=== PATIENT | male | born 1965 | race Caucasian/White ===

== ENCOUNTER 2016-06-01 06:33 | Inpatient (IN) | payer MEDICARE, MEDICAID ==
--- NOTE | 2016-05-28 23:35 | HP ---
HISTORY AND PHYSICAL: DATE OF ADMISSION/SURGERY: 06/01/16 DATE OF OFFICE VISIT: 05/26/16 ATTENDING SURGEON: Tracee Fish MD PROCEDURE: Left total knee arthroplasty. CHIEF COMPLAINT: Preop for a left total knee arthroplasty. HISTORY OF PRESENT ILLNESS: Toni is a 50-year-old male with chronic left knee pain due to osteoart hritis. The patient states that his knee pain is a 4/10 currently. He states that he has been havi ng a hard time getting through his shift- loads. He also states that his medications are becoming l ess and less effective. The patient has failed conservative therapy and is now electively pursuing a total knee arthroplasty. PAST MEDICAL HISTORY: 1. Presley cyst of the left knee. 2. Knee pain, osteoarthritis of left knee. 3. Arthritis of the ulna/wrist joint bilateral. 4. Right shoulder AC joint sprain. 5. Cubital tunnel syndrome bilaterally. 6. Carpal tunnel syndrome bilaterally. 7. Sciatica, right hip. 8. Costochondritis, right side of chest wall. 9. Trigger finger, bilateral pinkies, left ring finger. 10. Sleep apnea. 11. L3-S1 facet arthroplasty. 12. C3-C6 marked spurring. PAST SURGICAL HISTORY: 1. 05/11/16, left knee arthroscopy, Dr. Fish. 2. 09/18/11, right total knee replacement, Dr. Araiza. 3. 06/01/11, right knee arthroscopy, Dr. Araiza. 4. 08/31/09, left median and ulnar nerve decompression. 5. 02/26/09, right median and ulnar nerve decompression and right fifth finger trigger release, Dr. Connelly. 6. 12/19/07, right labrum tear repair, Dr. Araiza. 7. 08/01/07, right knee arthroscopy, Dr. Araiza. 8. 07/21/05, right cubital tunnel release, Dr. Connelly. 9. 03/17/04, right knee arthroscopy, Dr. Araiza. 10. 11/05/03, C6-C7 anterior surgical diskectomy, Dr. Laws. 11. 07/09/03, left carpal tunnel release, Dr. Laws. 12. 04/30/03, right carpal tunnel release, Dr. Laws. 13. 01/21/03, nasal septum deviation, swollen turbinates, and epiglottis surgery, Dr. Lucero. 14. 12/25/02, right shoulder decompression, Dr. Araiza. 15. 10/16/02, right knee arthroscopy, Dr. Araiza. 16. 09/09/96, right knee arthroscopy, Dr. Oliva. 17. 11/13/95, right knee arthroscopy. 18. 03/21/91, left ear tube. CURRENT MEDICATIONS: 1. Levothyroxine 0.075 mg take 1 tablet per day. 2. Lisinopril 10 mg 1 tablet per day. 3. Baclofen 10 mg 1 tablet twice daily. 4. Lipitor 10 mg once a day. 5. Ambien CR 5 mg once a day. 6. Gabapentin 100 mg 3 tablets twice daily, 4 tablets at bedtime. 7. Aleve 220 mg 3 tablets 3 times a day. 8. Tramadol 50 mg 1 tablet every 6 hours. 9. Aspirin 325 mg 1 tablet twice a day. 10. Ex-Lax 25 mg 1 tablet as needed. ALLERGIES: MOTRIN, VIOXX, and CELEBREX. FAMILY MEDICAL HISTORY: The patient has no family medical history to speak of. SOCIAL HISTORY: The patient has never smoked. Denies any illicit drug use and denies any alcoholic drinking. REVIEW OF SYSTEMS: General: Negative for fevers, chills, and night sweats. No known anesthesia pr oblems. HEENT: Negative for headaches, lightheadedness, or syncopal episodes. Integument: Negati ve for abrasions, lesions, or open wounds. Cardiothoracic: Negative for chest pain, palpitations, o r edema. Pulmonary: Negative for shortness of breath with exertion or chronic cough. GI: Negative for nausea, vomiting, or diarrhea. The patient admits to constipation, currently taking Ex-Lax. G U: Negative for nocturia, urinary frequency, or urinary urgency. MSK: Positive for left knee pain. See HPI. Neuro: Negative for paresthesias or numbness. Negative for diabetes. Admits to thyroi d complications. Hematologic: Negative for easy bruising or anemia. PHYSICAL EXAMINATION GENERAL: The patient is a well-developed, well-nourished 50-year-old male who appears in no acute d istress. HEENT: NCAT, PERRLA, EOMI. NECK: Supple with no palpable lymphadenopathy. PULMONARY: Lungs are clear to auscultation in all lung diaz with no audible wheezing, rales, or r honchi. CARDIO: Regular rate and rhythm with normal S1 and S2. No appreciable S3 or S4. No murmurs, rubs, or gallops. No edema. ABDOMEN: Normoactive bowel sounds in all 4 quadrants. Soft and nontender to palpation in all 4 anamaria drants. NEUROLOGIC: Alert and oriented x3. Cranial nerves II through XII are grossly intact. Sensation is intact to light touch in the left and right lower extremity. MUSCULOSKELETAL: Left lower extremity: The patient's skin is intact. The patient reveals tenderne ss to palpation along the medial and lateral joint line. No varus or valgus instability. Active mo tion from 10 to 120 degrees of flexion. The patient has 5/5 ankle dorsiflexion and plantar flexion strength; 2+ palpable dorsalis pedis pulse and posterior tibialis pulse. DIAGNOSTIC STUDIES/LAB DATA: Multiple views of the left knee were reviewed today and seemed approp riate for surgery by Dr. Fish. The patient had osteophyte formation, subchondral sclerosis, and jarrod int space narrowing of the left knee. ASSESSMENT: Preop for a left total knee arthroplasty. PLAN/RECOMMENDATIONS: The patient is scheduled to undergo a left total knee arthroplasty on 7. He will return to the office in 10 to 14 days postop for followup and suture removal. A prescri ption for Percocet, Colace, and Coumadin was e-prescribed to the patient's pharmacy for postoperativ e pain management. The benefits and possible risks of surgery were discussed with the patient and t he consent was obtained. ARNAUD SARABIA [id number]/[facility] #: [id number]
[~2016-06-01 06:33] MED LIST: Buffered Lidocaine 1% SYR 3ML* 3 ML/SYR SYRINGE INTRADERM ONE
[2016-06-01] MEDS ORDERED: ceFAZolin 2 GM PREMIX (*) 2 GM/50 ML BAG IVPB ONE (07:52)
[2016-06-01] MEDS ORDERED: ceFAZolin 1 GM in Dextrose (*) 1 GM/50 ML BAG IVPB ONE (07:53)
[2016-06-01] MEDS ORDERED: Buffered Lidocaine 1% SYR 3ML* 3 ML/SYR SYRINGE ONE (07:53)
[2016-06-01] MEDS ORDERED: fentaNYL* 50 MCG/ML 2 ML VIAL (100 MCG VIAL) ONE ×6 (09:58→13:46)
[2016-06-01] MEDS ORDERED: Midazolam* 1 MG/ML 2 ML VIAL (2 MG) ONE (09:58)
[2016-06-01] MEDS ORDERED: Ondansetron INJ* 2 MG/ML VIAL ONE (10:33)
[2016-06-01] MEDS ORDERED: Dexamethasone IV* 4 MG/ML 1 ML (4 MG) ONE (10:33)
[2016-06-01] MEDS ORDERED: Propofol* 10 MG/ML 20 ML BTL IV PUSH ONE (10:33)
[2016-06-01] MEDS ORDERED: Lidocaine 2% MPF* 2 ML VIAL ONE (10:33)
[2016-06-01] MEDS ORDERED: Bupivacaine 0.5% SDV PF* 30 ML VIAL ONE (10:50)
[2016-06-01] MEDS ORDERED: Sevoflurane* 1 BTL ONE (12:41)
[2016-06-01] MEDS ORDERED: Acetaminophen TAB* 325 MG PO PRN (13:03)
[2016-06-01] MEDS ORDERED: oxyCODONE/Acetamin 5/325 MG* TAB PO PRN (13:03)
[2016-06-01] MEDS ORDERED: HYDROmorphone INJ* 1 MG/ML CARPUJECT SYRINGE ONE ×2 (13:03→14:30)
[2016-06-01] MEDS: fentaNYL* 50 MCG/ML 2 ML VIAL (100 MCG VIAL) IV PRN ×5 (13:07→13:48)
[2016-06-01] MEDS: HYDROmorphone INJ* 1 MG/ML CARPUJECT SYRINGE IV PRN ×4 (13:11→14:47)
[2016-06-01] MEDS ORDERED: oxyCODONE/Acetamin 5/325 MG* TAB ONE (13:33)
[2016-06-01] MEDS: oxyCODONE/Acetamin 5/325 MG* TAB PO PRN ×3 (13:35→23:32)
--- NOTE | 2016-06-01 13:48 | RAD ---
INDICATION: Total knee replacement COMPARISON: March 22, 2016 TECHNIQUE: AP and lateral views were obtained. FINDINGS: There is left knee arthroplasty. Both femoral and tibial components appear well seated. There is a surgical drain in place. There are soft tissue changes compatible with recent surgery. IMPRESSION: LEFT KNEE ARTHROPLASTY.
[2016-06-01] MEDS ORDERED: Bisacodyl SUPP* 10 MG SUPP PR PRN (14:24)
[2016-06-01] MEDS ORDERED: diPHENhydraMINE IV* 50 MG/ML 1 ml VIAL (BENADRYL) IV PRN (14:24)
[2016-06-01] MEDS ORDERED: Ondansetron TAB* 4 MG PO PRN (14:24)
[2016-06-01] MEDS ORDERED: Polyethylene Glycol 3350* 17 GM PACKET PO PRN (14:24)
[2016-06-01] MEDS ORDERED: Ondansetron INJ* 2 MG/ML VIAL IV PRN (14:24)
[2016-06-01] MEDS ORDERED: Zolpidem TAB* 5 MG PO PRN (14:28)
[2016-06-01] MEDS ORDERED: Enoxaparin(*) 40 MG/0.4 ML SYR SUBCUT SCH (15:00)
[2016-06-01] MEDS: oxyCODONE TAB* 5 MG TAB PO PRN (16:30)
[2016-06-01] MEDS ORDERED: Warfarin TAB(*) 10 MG PO ONE (17:00)
[2016-06-01] MEDS: ceFAZolin 1 GM in Dextrose (*) 1 GM/50 ML BAG IVPB SCH (17:51)
[2016-06-01] MEDS: Atorvastatin* 10 MG TAB PO SCH (17:52)
[2016-06-01] MEDS: Lisinopril TAB* 10 MG PO SCH (17:52)
[2016-06-01] MEDS: Magnesium Hydroxide LIQ* 30 ML UDC PO SCH (20:54)
[2016-06-01] MEDS: Docusate CAP* 100 MG PO SCH (20:56)
[2016-06-01] MEDS: Gabapentin CAP(*) 300 MG PO SCH (20:56)
[2016-06-01] MEDS: Morphine INJ* 10 MG/ML 1 ML CARPUJECT IV PRN (21:43)
[2016-06-02] MEDS: Morphine INJ* 10 MG/ML 1 ML CARPUJECT IV PRN ×2 (01:36→20:37)
[2016-06-02] MEDS: ceFAZolin 1 GM in Dextrose (*) 1 GM/50 ML BAG IVPB SCH ×2 (01:38→08:01)
[2016-06-02] MEDS: oxyCODONE/Acetamin 5/325 MG* TAB PO PRN ×4 (03:19→20:17)
[2016-06-02] MEDS: Levothyroxine TAB* 75 MCG TAB PO SCH (06:00)
[2016-06-02 06:56] LABS: Hematocrit 32 % (42-52); Hemoglobin 10.7 g/dl (14.0-18.0)
[2016-06-02 07:08] LABS: Calcium 8.7 mg/dL (8.6-10.3); EGFR African American 100.9 (>60); EGFR Non-African American 78.5 (>60); Potassium 4.1 mmol/L (3.5-5.0)
--- NOTE | 2016-06-02 07:34 | PN ---
Progress Note - Progress Note SOAP: Subjective: Pt is doing well, reports pain well controlled. Objective: LLE - drain removed, tip intact, 200 cc ss drainage. distally nvi with +df/pf, full sens lt, 2+ dp pulse. Vital Signs: Temp Pulse Resp BP Pulse Ox 97.7 F 91 18 110/63 98 06/02/16 03:18 06/02/16 03:18 06/02/16 05:19 06/02/16 03:18 06/02/16 03:18 Laboratory Results - last 24 hr 06/01/16 06/02/16 06/02/16 08:05 06:21 06:21 Hgb 10.7 L Hct 32 L INR (Anticoag Therapy) 1.39 H Sodium Potassium Chloride Carbon Dioxide Anion Gap BUN Creatinine Est GFR ( Amer) Est GFR (Non-Af Amer) BUN/Creatinine Ratio Glucose Calcium Blood Type A Negative Antibody Screen Negative 06/02/16 06:21 Hgb Hct INR (Anticoag Therapy) Sodium 135 Potassium 4.1 Chloride 103 Carbon Dioxide 28 Anion Gap 4 BUN 13 Creatinine 1.00 Est GFR ( Amer) 100.9 Est GFR (Non-Af Amer) 78.5 BUN/Creatinine Ratio 13.0 Glucose 118 H Calcium 8.7 Blood Type Antibody Screen Assessment: 50 yo M pod 2 s/p LTKA Plan: pt/ot - wbat lle ramírez out this AM 8 mg coumadin tonight, cont lovenox plan d/c tomorrow with vns
[2016-06-02] MEDS: Docusate CAP* 100 MG PO SCH ×2 (08:01→20:18)
[2016-06-02] MEDS: Magnesium Hydroxide LIQ* 30 ML UDC PO SCH ×2 (08:01→20:16)
[2016-06-02] MEDS: Gabapentin CAP(*) 300 MG PO SCH ×2 (08:01→20:17)
[2016-06-02] MEDS: oxyCODONE TAB* 5 MG TAB PO PRN ×4 (08:02→23:57)
--- NOTE | 2016-06-02 08:36 | OP ---
DATE OF OPERATION: 06/01/16 - ROOM #334 DATE OF : 61 SURGEON: Tracee Fish MD OB GYN: ARNAUD Marion ANESTHESIOLOGIST: Dr. Ray. ANESTHESIA: General. PRE-OP DIAGNOSIS: Severe end-stage degenerative osteoarthritis of the left knee joint. POST-OP DIAGNOSIS: Severe end-stage degenerative osteoarthritis of the left knee joint. OPERATIVE PROCEDURE: Left total knee arthroplasty. TOURNIQUET TIME: 56 minutes. COMPLICATIONS: None. SPECIMENS: Bone and cartilage from the left knee joint sent to pathology. ESTIMATED BLOOD LOSS: 300 mL. HARDWARE USED: This was cemented [employer] total knee hardware with two packages of bone and cement of simplex bone cement. For the femur, a size 6 left posterior stabilized Oxinium femoral component. For the tibia, a size 6 left tibial base plate. For the patella, a 35 mm 3-peg all-poly patella. For the insert an 1l-mm posterior stabilized articular insert. BRIEF HISTORY/INDICATIONS: Mr. Hurd is a 50-year-old gentleman with years of increasingly severe left knee pain. He failed conservative treatment with antiinflammatories, pain medication, weight loss attempt, physical therapy, brace wear, intraarticular injections and arthroscopy. At the time of arthroscopy and on radiographs he was found to have severe degenerative osteoarthritis in a tricompartment fashion. He elected to undergo left total knee arthroplasty due to continued pain and decreased quality of life. Informed consent was obtained from the patient. He understood the risks of the procedure included, but were not limited to bleeding, infection, damage to nearby structures, continued pain, need for further surgery, intraoperative fracture, nerve palsy, hardware failure or loosening, stroke, heart attack, blood clot, and . He wished to proceed. INTRAOPERATIVE FINDINGS: Intraoperatively, the patient was noted to have a valgus type arthritic picture which is tricompartmental with full thickness degeneration of cartilage in the medial, lateral and patellofemoral compartment. He had lateral femoral condylar hypoplasia. DESCRIPTION OF PROCEDURE: Mr. Hurd was identified in the preanesthesia unit. His left lower extremity was marked as the correct operative side. Informed consent was signed and placed in the chart. The patient was taken to the operating room and placed under general anesthesia. A Hall catheter was placed. Tourniquet was placed on the left thigh. The left lower extremity was prepped and draped in the usual sterile fashion. Preop time-out was made to correctly identify the patient side and site. Appropriate preoperative antibiotics were given within 1 hour of incision. Tourniquet was inflated until the tourniquet time for this procedure was 56 minutes. A 14 cm midline incision was made with the 10 blade and carried down to the extensor mechanism. A new 10 blade was then used to make a standard medial parapatellar arthrotomy. Patella was subluxed laterally. Electrocautery was used to subperiosteally elevate soft tissue off the superomedial tibia to the mid sagittal plane. The knee was flexed up. Anterior horn of the lateral meniscus and ACL was sharply released. A drill was used to enter the distal femur. Lateral femoral condylar hypoplasia was noted and accounted for. Oscillating saw was used to make the distal femoral cut. Next, the external rotational guide was placed on the distal femur. Distal femur was sized to a size 6. A size 6 multi-cutting jig was pinned into position on the distal femur. The oscillating saw was used to make the appropriate chamfer cuts. Next, the PCL was completely released. Tibia was subluxed anteriorly. Extramedullary tibial cutting guide was pinned into position on the proximal tibia. The oscillating saw was used to make the appropriate tibial cut perpendicular to the mechanical axis of the tibia. The bone was carefully removed. The knee was brought out into full extension. The spacer block had good fit with balancing medially and laterally. Flexion and extension gaps were well balanced. The knee was flexed up. Lamina selling manager was placed both medially and laterally. Any remaining meniscus was carefully excised with electrocautery. Curved osteotome and curette was used to remove any osteophyte from the posterior femoral condyles. A size 6 left femoral trial was impacted onto the distal femur and had good fit. Reamer and box cut osteotome were used to prepare the bone for the posterior stabilized implant. A size 6 tibial tray trial and 9 mm insert were placed. The knee was taken through range of motion and noted to have full extension to 120 degrees of flexion. There was good patello-emoral tracking. The patella was everted. 9 mm of patellar bone and cartilage were carefully removed with an oscillating saw. The patella was size to a size 35. Three pegs were drilled through the size 35 guide. A trial 35 patella was placed and the knee was taken through a range of motion. There was satisfactory patellofemoral tracking. All trials were carefully removed. The tibia was subluxed anteriorly and sized to a size 6. Proximal tibia was prepared using a keel punch. All bony cut surfaces were copiously irrigated with sterile saline and dried. Final implants were cemented into place starting with the tibia, followed by the femur , and lastly the patella. An 11-mm trial insert was placed, and the knee was brought out to full extension. Tourniquet was turned down at 56 minutes. Once the cement was fully cured, the trial insert was removed. The capsule was checked for any bleeding or excess cement which was carefully removed. An 11 mm posterior stabilized insert was chosen as the final implant. This was locked into position on the tibial tray. Stability of the insert was checked and rechecked, and noted to be stable. Final range of motion was full extension to 125 degrees of flexion with good patellofemoral tracking. The knee was copiously irrigated with sterile saline. The extensor mechanism was closed using interrupted #1 Vicryls over a medium Hemovac drain. The rest of the incision was closed in a layered fashion using 0 and 2-0 Vicryls. Skin was closed using running 3-0 nylon suture. Xeroform, 4x4s, and Webril were used to cover the incision. Chriss wrap and cold pack were placed over this. The patient's anesthesia was reversed without difficulty. He was taken to the PACU in stable condition. Intended DVT prophylaxis will be Coumadin with a Lovenox bridge. Intended weightbearing will be weightbearing as tolerated. [id number]/[facility] #: [id number] [facility]
[2016-06-02] MEDS: Vitamin THERAPEUTIC TAB PO SCH (08:37)
[2016-06-02] MEDS ORDERED: Enoxaparin(*) 40 MG/0.4 ML SYR SUBCUT SCH (15:00)
[2016-06-02] MEDS ORDERED: Warfarin TAB(*) 4 MG PO ONE (17:00)
[2016-06-02] MEDS: Lisinopril TAB* 10 MG PO SCH (17:44)
[2016-06-02] MEDS: Atorvastatin* 10 MG TAB PO SCH (17:44)
[2016-06-03] MEDS: Morphine INJ* 10 MG/ML 1 ML CARPUJECT IV PRN (02:34)
[2016-06-03] MEDS: oxyCODONE/Acetamin 5/325 MG* TAB PO PRN ×2 (06:10→10:42)
[2016-06-03] MEDS: Levothyroxine TAB* 75 MCG TAB PO SCH (06:11)
[2016-06-03 06:56] LABS: Hematocrit 31 % (42-52); Hemoglobin 10.5 g/dl (14.0-18.0)
[2016-06-03 08:07] VITALS: BP 131/72
[2016-06-03] MEDS: Gabapentin CAP(*) 300 MG PO SCH (09:01)
[2016-06-03] MEDS: Vitamin THERAPEUTIC TAB PO SCH (09:01)
[2016-06-03] MEDS: Docusate CAP* 100 MG PO SCH (09:01)
[2016-06-03] MEDS: Magnesium Hydroxide LIQ* 30 ML UDC PO SCH (09:02)
--- NOTE | 2016-06-03 09:40 | PN ---
Progress Note - Progress Note SOAP: Subjective: POD #2 Left TKA, doing well. Pain controlled. Denies CP/SOB, calf pain or swelling. Appetite good, +BM Objective: Vital Signs: Temp Pulse Resp BP Pulse Ox 97.9 F 96 16 131/72 98 06/03/16 07:31 06/03/16 07:31 06/03/16 09:01 06/03/16 07:31 06/03/16 08:47 Gen: A & Ox3, NAD at rest sitting in chair LLE: Incision C/D/I. Mild edema, no erythema. +f/e at ankles, MTPs. N/V intact Laboratory Results - last 24 hr 06/03/06/03/16 06:47 06:47 Hgb 10.5 L Hct 31 L INR (Anticoag Therapy) 1.85 H Assessment: POD #2 left TKA, doing well Plan: D/C home today INR 1.8, continue Coumadin 2mg tonight and tomorrow F/U with Dr. Fish 10-14 days
--- NOTE | 2016-06-04 23:12 | DS ---
DISCHARGE SUMMARY: DATE OF ADMISSION: 06/01/16 DATE OF DISCHARGE: 06/03/16 ADMITTING DIAGNOSIS: End-stage osteoarthritis of the left knee. DISCHARGE DIAGNOSIS: Severe end-stage osteoarthritis of the left knee status post left total knee arthroplasty. SECONDARY DIAGNOSES: 1. Sleep apnea. 2. Hypothyroidism. 3. Hypertension. HISTORY OF PRESENT ILLNESS: Mr. Hurd is a 50-year-old gentleman who has had chronic left knee pain due to osteoarthritis. He underwent a left knee arthroscopy to help alleviate his pain. However, he still persisted with debilitating pain in his knee. Medications are becoming less effective and he has a hard time with day to day activities. He elected to proceed with a left total knee arthroplasty. HOSPITAL COURSE: On 06/01/16, the patient was admitted to [facility] , underwent a successful left total knee arthroplasty by Dr. Fish. He recovered briefly in the Postanesthesia Care Unit and was transferred to the Short-Stay Surgical Unit in stable condition. On postop day 1, the patient states that his pain was well controlled with oral pain medications. He was able to ambulate a short distance with the use of rolling walker. He had an H and H of 10.7 and 32. Hemovac was removed without difficulty. Hall was also removed. INR was 1.39 with 8 mg of Coumadin. Postop day 2, the patient continued to have good pain control with oral pain medications. H and H was stable at 10.5 and 31. INR 1.8 with 8 mg of Coumadin. He was found stable for discharge on postop day 2. Throughout his hospital course, he remained normotensive and afebrile. DISCHARGE MEDICATIONS: He will go home with a prescription for Percocet 5/325 one to two tabs p.o. q. 4 to 6 hours p.r.n. pain. Coumadin 2 mg p.o. q.h.s. or otherwise directed by visiting nurse. He is understanding to take 2 mg on postop day 3 and postop day 4. He will have a redraw of his INR on postop day 5. Colace 100 mg p.o. b.i.d. p.r.n. constipation. He will resume his home medications: 1. Ambien 5 mg p.o. at bedtime p.r.n. 2. Lisinopril 10 mg p.o. q.p.m. 3. Levothyroxine 75 mcg p.o. daily. 4. Gabapentin 300 mg p.o. b.i.d. 5. Ex-lax 25 mg 1 to 2 tabs p.o. b.i.d. 6. Baclofen 10 mg p.o. t.i.d. 7. Atorvastatin 10 mg p.o. q.p.m. DISCHARGE INSTRUCTIONS: The patient is to continue weightbearing as tolerated in the left leg with a rolling walker. He will have home visiting nurse service and home PT. He is understanding that on postop day 4, he may wash the wound with soap and water. He may apply a dry dressing as needed. He is understanding not to submerge the wound in the bathtub, hot tub or swimming pool. He is also understanding to call the office with any problems or concerns or go directly to the emergency room with any chest pain, shortness of breath, fever greater than 101.5, calf pain or swelling. The patient will follow up with me in the office 10 to [address] Fish. All of his questions were answered to his full satisfaction. He is understanding to call with any problems or concerns. ARNAUD BRAVO [id number]/[facility] #: [id number] [facility]
== END 2016-06-03 11:05 | disposition home health service (06) | DRG 470 ==
LOC: AA 06:33 → SSU 15:13
PROVIDERS: ADMIT Orthopaedic Surgery Adult Reconstructive Orthopaedic Surgery; ATTEND Orthopaedic Surgery Adult Reconstructive Orthopaedic Surgery
PROC: 0SRD0J9 Replacement of Left Knee Joint with Synthetic Substitute, Cemented, Open Approach (ICD-10-PCS; principal; 2016-06-01 09:30)
DX: M17.12 Unilateral primary osteoarthritis, left knee (principal); E03.9 Hypothyroidism, unspecified; G89.29 Other chronic pain; M19.032 Primary osteoarthritis, left wrist; M19.031 Primary osteoarthritis, right wrist; Z96.651 Presence of right artificial knee joint; Z88.8 Allergy status to other drugs, medicaments and biological substances; Q72.892 Other reduction defects of left lower limb; G47.30 Sleep apnea, unspecified
CPT/HCPCS: 36415; 80048; 85014; 85018; 85610; 86850; 86900; 86901; 88305; 88311; 94760; A9270-GY; C1776; J0690; J1100; J1170; J1650; J2250; J2270; J2405; J2704; J3010

== ENCOUNTER → 2018-10-24 10:43 | Emergency (ER) | payer MEDICAID, MEDICARE ==
[~2018-10-24 10:43] MED LIST changes: +Aspirin 81 mg CHEW TAB* 81 MG TAB.CHEW PO ONE; -Buffered Lidocaine 1% SYR 3ML* 3 ML/SYR SYRINGE INTRADERM ONE; +Iodixanol* (CONTRAST) 320 MG/ML 100 ML SDV IV ONE; +Nitroglycerin TAB 0.4 MG* 0.4 MG TAB SL ONE
[2018-10-24 12:27] LABS: ABS Basophils 0.1 10^3/ul (0-0.2); ABS Eosinophils 0.2 10^3/ul (0-0.6); ABS Lymphocytes 0.9 10^3/ul (1.0-4.8); ABS Monocytes 0.5 10^3/ul (0-0.8); ABS Neutrophils 4.2 10^3/ul (1.5-7.7); Eosinophil % 2.7 %; Hematocrit 42 % (42-52); Hemoglobin 14.6 g/dL (14.0-18.0); Lymphocyte % 15.8 %; Mean Corpuscular HGB Conc 35 g/dL (31-36); Mean Corpuscular Hemoglobin 30 pg (27-31); Mean Corpuscular Volume 86 fL (80-94); Mean Platelet Volume 8.3 fL (7.4-10.4); Nucleated Red Blood Cells % 0.1; Platelet Count 227 10^3/uL (150-450); Red Blood Count 4.89 10^6 /uL (4.18-5.48); Red Cell Distribution Width 14 % (10-15); White Blood Count 5.9 10^3/uL (3.5-10.8)
[2018-10-24 12:48] LABS: Albumin 4.5 g/dL (3.2-5.2); Calcium 9.8 mg/dL (8.6-10.3); Potassium 4.2 mmol/L (3.5-5.0); Total Bilirubin 0.9 mg/dL (0.2-1.0)
[2018-10-24 12:55] LABS: Albumin/Globulin Ratio 1.6 (1-3); BUN/Creatinine Ratio 9.9 (8-20); Globulin 2.9 g/dL (2-4); Total Protein 7.4 g/dL (6.4-8.9)
--- NOTE | 2018-10-24 13:37 | ED ---
HPI Cardiac - HPI Summary HPI Summary: Patient is a 52 y/o M presenting to ED with complaints of chest pain, neck pain , right-sided CALDERON, left thigh pain. He states that last night, at around 1900, he experienced pain at his left thigh and momentary, sharp pain at the right side of his head. CALDERON lasted for a few minutes. He additionally felt diaphoretic and "flushed" momentarily. Patient later went to sleep. In the morning today, patient began to experience chest pain with radiation to his neck. Pain is described as a pressure. He additionally notes that he had a sharp "burning" pain between his shoulder blades this morning as well. He notes some pain at chest is still present, which he rates 2-3/10. Patient notes yawning and head movement aggravates neck pain. Deep breaths are noted to aggravate the pain. PMHx of hypothyroidism, HLD, HTN. PSHx of multiple arthritic-related surgery, carpal tunnel surgery, c6-c7 replacement. He denies cardiac stents or bypass surgeries. He had a cardiac stress test a few years ago, and a cardiac catheter around 2002. FMHx of blood clots in father. No recent long travel is reported. Pt denies any fever, chills, erythema of eyes, sore throat, SOB, cough, abdominal pain, N/V, dysuria, hematuria, edema, rash, or dizziness. On triage, pain is rated 4/10, nothing is noted to aggravate/alleviate Sx. Home medications and allergies are reviewed. - History of Current Complaint Chief Complaint: EDGeneral Stated Complaint: POSSIBLE BLOOD CLOT NECK PRESSURE Time Seen by Provider: 10/24/18 13:15 Hx Obtained From: Patient Onset/Duration: Still Present - chest pain Timing: Constant - CP since onset, Intermittent - CALDERON, Lasting Minutes - CALDERON, Lasting Hours - CP with radiation into neck since this morning, Lasting Days - thigh pain onset yesterday, 1900 Initial Severity: Mild Current Severity: Moderate Pain Intensity: 3 Pain Scale Used: 0-10 Numeric - 2-3/10 Chest Pain Radiates: Yes Chest Pain Radiates To:: Neck Character: Pressure/Squeezing Aggravating Factor(s): Movement, Deep Breaths, Other: - yawning aggravates neck pain Alleviating Factor(s): Nothing Associated Signs and Symptoms: Positive: Chest Pain, Headaches, Diaphoresis, Back Pain, Calf Pain/Swelling - left thigh pain, Other: - patient endorses neck pain, felt "flushed"; denies any erythema of eyes, sore throat, dysuria, hematuria, rash,. Negative: Dizziness, Shortness of Breath, Fever, Chills, Nausea, Cough, Productive Cough, Nonproductive Cough, Abdominal Pain, Vomiting, Edema - Additional Pertinent History Primary Care Physician: DANGELO - Allergy/Home Medications Allergies/Adverse Reactions: Allergies Allergy/AdvReac Type Severity Reaction Status Date / Time MS Latex [Latex] Allergy Mild Rash And Verified 10/24/18 13:18 Itching MS Celecoxib [From Celebrex] AdvReac Severe Pain Verified 10/24/18 13:18 MS Ibuprofen [From Motrin] AdvReac Severe Dizziness Verified 10/24/18 13:18 MS Rofecoxib [From Vioxx] AdvReac Severe Pain Verified 10/24/18 13:18 PMH/Surg Hx/FS Hx/Imm Hx Endocrine/Hematology History: Reports: Hx Thyroid Disease Denies: Hx Diabetes Cardiovascular History: Reports: Hx Hypercholesterolemia, Hx Hypertension Denies: Hx Congestive Heart Failure, Hx Pacemaker/ICD Respiratory History: Reports: Hx Sleep Apnea Denies: Hx Asthma History: Denies: Hx Dialysis, Hx Renal Disease Musculoskeletal History: Reports: Hx Arthritis - osteo joints, costochondritis of chest wall, Hx Bursitis - right hip, Hx Tendonitis - right shoulder, Other Musculoskeletal History - LUMBAR BONE SPURS, c3-c6 marked spurring Sensory History: Reports: Hx Contacts or Glasses Denies: Hx Hearing Aid Opthamlomology History: Reports: Hx Contacts or Glasses Neurological History: Reports: Other Neuro Impairments/Disorders - BILAT CTS Psychiatric History: Reports: Hx Depression - HX OF Denies: Hx Panic Disorder - Surgical History Surgery Procedure, Year, and Place: 1990 [facility]-LEFT EAR. 1995 & RIGHT KNEE SCOPING FLA. 2002, 2007, 2011 RIGHT KNEE SCOPING [facility]. 2002 [facility]- right shoulder decompression. 2002 [facility]- BILAT CTR. RIGHT KNEE REPLACEMENT 2012 [facility]. C6-C7 DISKECTOMY 2009. LEFT KNEE SCOPE 05/11/15. 2003 [facility]- C6/7 ACDF. 2005 [facility]- right cubital tunnel release. 02/26 [facility]- BILAT median & ulnar nerve release. 2003 cardiac cath. 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 Negative: Fever, Chills Negative: Erythema Negative: Sore Throat Positive: Chest Pain Negative: Shortness Of Breath, Cough Negative: Abdominal Pain, Vomiting, Nausea Negative: dysuria, hematuria Positive: Myalgia - POSITIVE - NECK PAIN, BACK PAIN, LEFT THIGH PAIN Negative: Rash Neurological: Other - NEGATIVE - DIZZINESS Positive: Headache All Other Systems Reviewed And Are Negative: Yes Physical Exam - Summary Physical Exam Summary: Constitutional: Well-developed, Obese, Alert. Patient has hearing aids. (-) Distressed Skin: Warm, Dry HENT: Normocephalic; Atraumatic Eyes: Conjunctiva normal Neck: Musculoskeletal ROM normal neck. (-) JVD, (-) Stridor, (-) Tracheal deviation Cardio: Rhythm regular, rate normal, Heart sounds normal; Intact distal pulses; The pedal pulses are 2+ and symmetric. Radial pulses are 2+ and symmetric. (-) Murmur (-) Reproducible chest pain Pulmonary/Chest wall: Effort normal. (-) Respiratory distress, (-) Wheezes, (-) Rales Abd: Soft, (-) tenderness, (-) Distension, (-) Guarding, (-) Rebound Musculoskeletal: (-) Edema Lymph: (-) Cervical adenopathy Neuro: Alert, Oriented x3 Psych: Mood and affect Normal Triage Information Reviewed: Yes Vital Signs On Initial Exam: Initial Vitals Temp Pulse Resp BP Pulse Ox 98.1 F 70 18 131/81 97 10/24/18 10:44 10/24/18 10:44 10/24/18 10:44 10/24/18 10:44 10/24/18 10:44 Vital Signs Reviewed: Yes Diagnostics - Vital Signs Vital Signs Temp Pulse Resp BP Pulse Ox 10/24/18 12:15 98.4 F 66 18 124/66 99 10/24/18 10:44 98.1 F 70 18 131/81 97 - Laboratory Lab Results: Lab Results 10/24/18 10/24/18 10/24/18 Range/Units 12:08 12:08 12:10 WBC 5.9 (3.5-10.8) 10^3/uL RBC 4.89 (4.18-5.48) 10^6 /uL Hgb 14.6 (14.0-18.0) g/dL Hct 42 (42-52) % MCV 86 (80-94) fL MCH 30 (27-31) pg MCHC 35 (31-36) g/dL RDW 14 (10-15) % Plt Count 227 (150-450) 10^3/uL MPV 8.3 (7.4-10.4) fL Neut % (Auto) 71.9 % Lymph % (Auto) 15.8 % Cooper % (Auto) 8.4 % Eos % (Auto) 2.7 % Baso % (Auto) 1.2 % Absolute Neuts (auto) 4.2 (1.5-7.7) 10^3/ul Absolute Lymphs (auto) 0.9 L (1.0-4.8) 10^3/ul Absolute Monos (auto) 0.5 (0-0.8) 10^3/ul Absolute Eos (auto) 0.2 (0-0.6) 10^3/ul Absolute Basos (auto) 0.1 (0-0.2) 10^3/ul Absolute Nucleated RBC 0.0 10^3/ul Nucleated RBC % 0.1 Sodium 140 (135-145) mmol/L Potassium 4.2 (3.5-5.0) mmol/L Chloride 104 (101-111) mmol/L Carbon Dioxide 29 (22-32) mmol/L Anion Gap 7 (2-11) mmol/L BUN 13 (6-24) mg/dL Creatinine 1.31 H (0.67-1.17) mg/dL Est GFR ( Amer) 69.0 (>60) Est GFR (Non-Af Amer) 57.0 (>60) BUN/Creatinine Ratio 9.9 (8-20) Glucose 94 (70-100) mg/dL Lactic Acid 0.6 (0.5-2.0) mmol/L Calcium 9.8 (8.6-10.3) mg/dL Total Bilirubin 0.90 (0.2-1.0) mg/dL AST 21 (13-39) U/L ALT 20 (7-52) U/L Alkaline Phosphatase 78 (34-104) U/L Troponin I 0.00 (<0.04) ng/mL Total Protein 7.4 (6.4-8.9) g/dL Albumin 4.5 (3.2-5.2) g/dL Globulin 2.9 (2-4) g/dL Albumin/Globulin Ratio 1.6 (1-3) Result Diagrams: 10/24/18 12:10 10/24/18 12:08 Lab Statement: Any lab studies that have been ordered have been reviewed, and results considered in the medical decision making process. - CT NECK CTA CT Interpretation Completed By: Radiologist Summary of CT Findings: IMPRESSION: 1. NO INTIMAL FLAP OR PSEUDOANEURYSM FORMATION TO SUGGEST CAROTID DISSECTION. 2. NO INTERNAL CAROTID ARTERY STENOSIS BY NASCET CRITERIA. 3. THE THYROID GLAND IS SMALL AND HETEROGENEOUS. THIS REPORT WAS REVIEWED BY DR. JOHNSON. CHEST/THORAX CTA CT Interpretation Completed By: Radiologist Summary of CT Findings: IMPRESSION: NO PULMONARY ARTERIAL FILLING DEFECT TO SUGGEST PULMONARY EMBOLISM. THIS REPORT WAS REVIEWED BY DR. JOHNSON. - EKG 1150 Cardiac Rate: NL - rate of 64 BPM EKG Rhythm: Sinus Rhythm Summary of EKG Findings: EKG showed sinus rhythm with rate of 64 BPM, no STEMI. Re-Evaluation - Re-Evaluation First Eval Re-Evaluation Time: 15:51 Comment: Results of labs and tests were discussed with the patient, the patient is agreeable with admission. Second Eval Re-Evaluation Time: 18:10 Change: Improved Comment: Reevaluation at 1810, the patient is currently chest pain-free at the time of discharge. Outpatient stress test has been arranged for the hospitalist service. They did recommend discharge. Disposition - Course Course Of Treatment: Patient is a 52 y/o M presenting to ED with complaints of chest pain, neck pain, right-sided CALDERON, left thigh pain. He states that last night, at around 1900, he experienced pain at his left thigh and momentary, sharp pain at the right side of his head. CALDERON lasted for a few minutes. He additionally felt diaphoretic and "flushed" momentarily. Patient later went to sleep. In the morning today, patient began to experience chest pain with radiation to his neck. Pain is described as a pressure. He additionally notes that he had a sharp "burning" pain between his shoulder blades this morning as well. He notes some pain at chest is still present, which he rates 2-3/10. Patient notes yawning and head movement aggravates neck pain. Deep breaths are noted to aggravate the pain. PMHx of hypothyroidism, HLD, HTN. PSHx of multiple arthritic-related surgery, carpal tunnel surgery, c6-c7 replacement. He denies cardiac stents or bypass surgeries. He had a cardiac stress test a few years ago , and a cardiac catheter around 2002. FMHx of blood clots in father. No recent long travel is reported. On physical exam, patient is noted to have no reproducible chest pain. Patient is obese. EKG showed sinus rhythm with rate of 64 BPM, no STEMI. Labs showed absolute lymphs 0.9, creatinine 1.31. First trop negative, second trop negative. CTA CHEST/THORAX IMPRESSION: NO PULMONARY ARTERIAL FILLING DEFECT TO SUGGEST PULMONARY EMBOLISM. CTA NECK IMPRESSION: 1. NO INTIMAL FLAP OR PSEUDOANEURYSM FORMATION TO SUGGEST CAROTID DISSECTION. 2. NO INTERNAL CAROTID ARTERY STENOSIS BY NASCET CRITERIA. 3. THE THYROID GLAND IS SMALL AND HETEROGENEOUS. During ED course, patient received ASA 324 mg PO and 0.4 mg SL. Patients case was discussed with Dr. Iraheta at 1542, Dr. Iraheta will evaluate the patient. Reevaluation at 181, the patient is currently chest pain-free at the time of discharge. Outpatient stress test has been arranged for the hospitalist service. They did recommend discharge. - Diagnoses Provider Diagnoses: Chest pain - Physician Notifications Discussed Care Of Patient With: Aide Iraheta Time Discussed With Above Provider: 15:42 Instructed by Provider To: Other - Patients case was discussed with Dr. Iraheta at 1542, Dr. Iraheta will evaluate the patient. 181 - After evaluation by hospitalist, it is recommended that the patient be discharged to home for out patient stress test. Patient will be discharged to home. Discharge - Sign-Out/Discharge Documenting (check all that apply): Patient Departure - discharge Patient Received Moderate/Deep Sedation with Procedure: No - Discharge Plan Condition: Stable Disposition: HOME Patient Education Materials: Chest Pain (ED) Referrals: Rene Wan MD [Primary Care Provider] - 2 [facility] [Outside] - 1 Day Additional Instructions: Return to the ER for any changing or worsening symptoms. We checked her heart enzymes twice which was normal today. Your CT scans reveal no blood clots. - Attestation Statements Document Initiated by Scribe: Yes Documenting Scribe: FRANCESCA REID Provider For Whom Scribe is Documenting (Include Credential): SAVANNAH JOHNSON MD Scribe Attestation: I, FRANCESCA RIED, scribed for SAVANNAH JOHNSON MD on 10/24/18 at 1809. Status of Scribe Document: Ready
[2018-10-24 17:45] VITALS: BP 136/71
--- NOTE | 2018-10-24 18:58 | CONS ---
CC: Dr. Wan * CONSULTATION REPORT: DATE OF CONSULT: 10/24/18 PRIMARY CARE PROVIDER: Dr. Wan. REQUESTING PHYSICIAN IN CONSULT: Dr. Addison. ATTENDING PHYSICIAN: Dr. Iraheta (dictated by Fernanda Markham NP). REASON FOR CONSULT: Admission. HISTORY OF PRESENT ILLNESS/HOSPITAL COURSE: I will refer you to Dr. Addison' history and physical for complete details, but in short, Mr. Hurd is a 52- year- old male with a past medical history significant for hypothyroid, hypertension, hyperlipidemia, sleep apnea, arthritis, depression; who presented to the emergency department today on 10/24/18 with complaints of right-sided chest pain. The patient was evaluated in room 15 in the emergency department by this chart writer. The patient recalls the event stating that last night around 1900, he was sitting and noted left inner thigh pain that lasted only a few seconds. He shortly thereafter experienced right-sided headache that lasted only a few seconds. He felt flushed and sweaty. These symptoms resolved and he went to bed. He reports he woke up the next morning with right-sided chest pain that felt very "pinpoint" and sharp. He said the pain slowly migrated to the center of his chest throughout the day, but never to the left. He reports he felt pressure in the right side of his neck later that day, but that has also resolved. He describes the pain as like when he had costochondritis. He reports he had diagnosed osteoarthritis in his chest wall. The patient denies aggravating factors. The patient reports alleviating factors include relaxing. The patient has no pain currently. The patient denies any associated symptoms with this pain including diaphoresis, palpitations, shortness of breath , dizziness, tinnitus, lightheadedness. The patient denies nausea and vomiting. The patient denies recent fevers or anorexia. The patient denies edema. The patient denies cough, hemoptysis, shortness of breath. The patient denies nausea, vomiting, diarrhea, abdominal pain. The patient denies gross hematuria. The patient denies dysuria. While in the emergency department, the patient has had a chest/thorax CTA. This imaging resulted stating no pulmonary artery filling deficit to suggest pulmonary embolism. He also had a neck CTA, which revealed no intimal flap or pseudoaneurysm formation to suggest carotid dissection, no internal carotid artery stenosis by NASCET criteria, thyroid gland is small and heterogeneous. The patient also had an echocardiogram, which revealed sinus rhythm with no ST changes. During this workup, the patient also had labs including a CBC which is unremarkable and a BMP which revealed elevated creatinine of 1.31. The patient had repeat troponins, all of which were 0.00. The patient's vital signs have also been stable. He has not been tachycardic. He has not been hypertensive. He is afebrile. He is oxygenating well on room air. His respirations are normal. PAST MEDICAL HISTORY: 1. Hypothyroid. 2. Hypertension. 3. Hyperlipidemia. 4. Sleep apnea. 5. Arthritis. 6. Depression. PAST SURGICAL HISTORY: 1. Multiple surgeries related to arthritis. 2. Carpal tunnel. 3. C6-C7. HOME MEDICATIONS: 1. Baclofen 10 mg p.o. t.i.d. p.r.n. 2. Lipitor 10 mg p.o. q.p.m. 3. Lisinopril 10 mg p.o. q.p.m. 4. Levothyroxine 75 mcg p.o. at 0800. 5. Ambien 5 mg p.o. at bedtime. 6. Naproxen 3 tabs p.o. t.i.d. p.r.n. ALLERGIES: LATEX, CELEBREX, IBUPROFEN, ROFECOXIB. FAMILY HISTORY: The patient reports dad due to a complication with a blood clot. Reports mom due to COPD. The patient reports mom had a history of diabetes. The patient reports dad had a history of skin cancer. SOCIAL HISTORY: The patient does not smoke. The patient does not drink. The patient does not do drugs. The patient works at [employer]. REVIEW OF SYSTEMS: A 14-point review of systems was performed and all pertinent positive and negative findings are in the HPI. All others were negative. PHYSICAL EXAM: General: Mr. Hurd is a 52-year-old male who is sitting in bed. Appears to be in no acute distress. Appears stated age. Vital Signs: Temp 98.4, HR 77, RR 18, O2 saturation 100% on room air, BP 149/ 92. HEENT: EOMs intact. PERRLA. Oral mucosa is moist without lesions. Posterior pharynx is clear. Neck: Supple. No lymphadenopathy. Cardiac: S1, S2 present. No murmurs, rubs, or gallops. Regular rate and rhythm. Respiratory: Lungs are clear to auscultation. No wheezes, rhonchi, or rales. Good aeration. Abdomen: Soft, nontender. Bowel sounds are normoactive. Extremities: No edema. No clubbing or cyanosis. Pedal pulses are 2+ bilaterally. Musculoskeletal: No pain or deformities. Skin: Skin is grossly intact. Neuro: Neuro exam is grossly intact. No focal deficits or weakness noted. LABORATORY DATA: WBC 5.9, hemoglobin 14.6, hematocrit 42, platelets 227,000. Sodium 140, potassium 4.2, chloride 104, carbon dioxide 29, BUN 13, creatinine 1.31. ASSESSMENT AND PLAN: Mr. Hurd is a 52-year-old male with a past medical history significant for hypothyroid, hypertension, hyperlipidemia, sleep apnea, arthritis, depression; who presented to the emergency department today with complaints of right-sided chest pain. We discussed admitting the patient for a stress test tomorrow, but the patient would prefer to be discharged and do stress test as an outpatient as he feels improved and believes that his pain was related to costochondritis as it feels very similar to a previous episode. 1. Right-sided chest pain. While in the emergency department, the patient has had repeat troponins, which were negative. The patient had an EKG, which is within normal limits. The patient has had a CTA, which did not show evidence of a pulmonary embolism. The patient has been on tele, which has been unremarkable. The patient reports the right-sided chest pain has now resolved. He reports it was similar to that of costochondritis. Given the patient's comorbidities, we did discuss the benefit of a stress test and the patient would like to do this as an outpatient. This has been ordered by my attending, Dr. Iraheta. The patient will be contacted by [facility] in 24 to 48 hours regarding time for a stress test. The patient was educated on signs and symptoms of new or worsening condition and when to return to the emergency department. The patient stated understanding. 2. Hypothyroid. The patient should continue his levothyroxine as same. I would recommend the patient have a TSH drawn with his primary care. 3. Hyperlipidemia. The patient should continue his statin as same. I would recommend the patient have repeat lipids. 4. Sleep apnea. We discussed the importance of continuing his BiPAP use nightly and the patient stated understanding. 5. Arthritis. The patient reports his pain is controlled. The patient should follow up with his primary care as needed. 6. Depression. The patient reports he has a history of this, but is no longer struggling with depression. 7. Elevated Creatinine: Patient's creatinine is mildly elevated. This could be his baseline or secondary to dehydration. I would recommend a repeat BMP in one week with PCP. 7. Disposition: I have discussed the patient's risk factors and plan with the patient. The patient has made the decision that he would like to be discharged home and have an outpatient stress test. I discussed this with Dr. Addison and my attending Dr. Iraheta, who agree with my plan. The patient will be discharged by Dr. Addison. TIME SPENT: Approximately 45 minutes were spent on this consultation, greater than half the time was spent with the patient obtaining my history, performing physical exam, and reviewing my plan of care. This case has been reviewed with my attending, Dr. Iraheta, who is in agreement with my plan of care. Reviewed by FERNANDA MARKHAM NP 10/26/18 @ 1822 [id number]/CPS #: [id number]
== END | disposition home or self-care (01) ==
LOC: ED 10:43
DX: R07.9 Chest pain, unspecified (principal); R94.31 Abnormal electrocardiogram [ECG] [EKG]; I10 Essential (primary) hypertension; E78.5 Hyperlipidemia, unspecified; E03.9 Hypothyroidism, unspecified; M19.90 Unspecified osteoarthritis, unspecified site; F32.9 Major depressive disorder, single episode, unspecified; Z91.040 Latex allergy status; Z88.6 Allergy status to analgesic agent; Z88.3 Allergy status to other anti-infective agents; Z98.61 Coronary angioplasty status
CPT/HCPCS: 36415; 70498; 71275; 80053; 83605; 84484; 85025; 93005; 99283; A9270-GY; Q9967

== ENCOUNTER 2019-08-03 10:24 | Emergency (ER) | payer OTHER, MEDICAID ==
--- NOTE | 2019-08-03 11:04 | ED ---
Lower Extremity - HPI Summary HPI Summary: 53-year-old male with a significant past surgical history of bilateral total knee arthroplasty who sees orthopedist Dr. Fish presents to the emergency department today complaining of 10 out of 10 right knee pain and swelling after injuring it yesterday when coming down a ladder. Patient states she believes he twisted his knee while coming down a ladder and he has now expressing pain which is made worse with extension of the knee and bearing weight however he is able to ambulate with a walker. Patient otherwise is well and denies recent travel, cough, fever, chest pain, abdominal pain, shortness of breath, nausea, vomiting and diarrhea. Patient is neurovascularly intact. Patient is taking gabapentin for his pain prior to arrival with relief of symptoms. - History of Current Complaint Chief Complaint: EDExtremityLower Stated Complaint: R KNEE PAIN FROM FALL PER PT Time Seen by Provider: 08/03/19 10:45 Hx Obtained From: Patient Onset of Pain: Immediate Onset/Duration: Days Severity Initially: Severe Severity Currently: Severe Pain Intensity: 7 Pain Scale Used: 0-10 Numeric Timing: Constant Location: Is Discrete @ - Right knee Character Of Pain: Aching Associated Signs And Symptoms: Positive: Knee Pain Aggravating Factor(s): Standing, Ambulation, Movement, Weight Bearing, Stairs Alleviating Factor(s): Rest Able to Bear Weight: Yes - Allergies/Home Medications Allergies/Adverse Reactions: Allergies Allergy/AdvReac Type Severity Reaction Status Date / Time latex Allergy Mild Rash And Verified 08/03/19 10:38 Itching celecoxib AdvReac Severe Pain Verified 08/03/19 10:38 ibuprofen AdvReac Severe Dizziness Verified 08/03/19 10:38 rofecoxib AdvReac Severe Pain Verified 08/03/19 10:38 Home Medications: Home Medications Atorvastatin* [Lipitor 10 MG*] 10 mg PO QPM 12/31/12 [History Confirmed 10/30/18 ] Levothyroxine TAB* [Synthroid 75 MCG TAB*] 75 mcg PO 0800 12/31/12 [History Confirmed 10/30/18] Naproxen Sodium 3 tab PO TID PRN 12/31/12 [History Confirmed 10/30/18] Zolpidem TAB* [Ambien*] 5 mg PO BEDTIME PRN 12/31/12 [History Confirmed 10/30/18 ] Baclofen TAB* [Lioresal TAB*] 10 mg PO TID PRN 09/01/14 [History Confirmed 10/30] Lisinopril TAB* [Prinivil TAB 10 MG*] 10 mg PO QPM 09/01/14 [History Confirmed 10/30/18] PMH/Surg Hx/FS Hx/Imm Hx Endocrine/Hematology History: Reports: Hx Thyroid Disease Denies: Hx Diabetes Cardiovascular History: Reports: Hx Angina, Hx Hypercholesterolemia, Hx Hypertension Denies: Hx Congestive Heart Failure, Hx Pacemaker/ICD Respiratory History: Reports: Hx Sleep Apnea Denies: Hx Asthma History: Denies: Hx Dialysis, Hx Renal Disease Musculoskeletal History: Reports: Hx Arthritis - osteo joints, costochondritis of chest wall, Hx Bursitis - right hip, Hx Tendonitis - right shoulder, Other Musculoskeletal History - LUMBAR BONE SPURS, c3-c6 marked spurring Sensory History: Reports: Hx Contacts or Glasses Denies: Hx Hearing Aid Opthamlomology History: Reports: Hx Contacts or Glasses Neurological History: Reports: Other Neuro Impairments/Disorders - BILAT CTS Psychiatric History: Reports: Hx Depression - HX OF Denies: Hx Panic Disorder - Cancer History Cancer Type, Location and Year: SKIN CARCINOMA REMOVED - Surgical History Surgery Procedure, Year, and Place: 1990 [facility]-LEFT EAR. 1995 & RIGHT KNEE SCOPING FLA. 2002, 2007, 2011 RIGHT KNEE SCOPING [facility]. 2002 [facility]- right shoulder decompression. 2002 [facility]- BILAT CTR. RIGHT KNEE REPLACEMENT 2011 [facility]. C6-C7 DISKECTOMY 2009. LEFT KNEE SCOPE 05/11/15. 2003 [facility]- C6/7 ACDF. 2005 [facility]- right cubital tunnel release. 02/26 [facility]- BILAT median & ulnar nerve release. 2003 cardiac cath. 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 Denies: Traveled Outside the [place] in Last 30 Days - Family History Known Family History: Positive: Blood Disorder - FMHx of blood clots - Social History Alcohol Use: None Substance Use Type: Reports: None Smoking Status (MU): Never Smoked Tobacco Review of Systems Constitutional: Negative Eyes: Negative ENT: Negative Cardiovascular: Negative Respiratory: Negative Gastrointestinal: Negative Genitourinary: Negative Positive: Arthralgia, Decreased ROM Skin: Negative Neurological/Mental Status: Negative Psychological: Normal All Other Systems Reviewed And Are Negative: Yes Physical Exam - Summary Physical Exam Summary: Patient is in no acute distress. There is no obvious deformity of the right knee. There is mild edema noted superior to the patella. Patient has no pain with valgus and varus stress. Patient has full range of motion of the right knee. Negative anterior and posterior drawer. Triage Information Reviewed: Yes Vital Signs On Initial Exam: Initial Vitals Temp Pulse Resp BP Pulse Ox 99.1 F 65 14 128/84 98 08/03/19 10:34 08/03/19 10:34 08/03/19 10:34 08/03/19 10:34 08/03/19 10:34 Vital Signs Reviewed: Yes Appearance: Positive: Well-Appearing, No Pain Distress, Well-Nourished Skin: Positive: Warm, Skin Color Reflects Adequate Perfusion Eyes: Positive: EOMI, GRICELDA ENT: Positive: Hearing grossly normal Respiratory/Lung Sounds: Positive: Clear to Auscultation, Breath Sounds Present Cardiovascular: Positive: RRR, S1, S2 Abdomen Description: Positive: Nontender, Soft Bowel Sounds: Positive: Present Musculoskeletal: Positive: Strength/ROM Intact Neurological: Positive: Sensory/Motor Intact, Alert, Oriented to Person Place, Time, Normal Gait, Facial Symmetry, Speech Normal Psychiatric: Positive: Normal, Affect/Mood Appropriate AVPU Assessment: Alert Procedures - Sedation Patient Received Moderate/Deep Sedation with Procedure: No Diagnostics - Vital Signs Vital Signs Temp Pulse Resp BP Pulse Ox 08/03/19 10:34 99.1 F 65 14 128/84 98 - Laboratory Lab Statement: Any lab studies that have been ordered have been reviewed, and results considered in the medical decision making process. Lower Extremity Course/Dx - Course Course Of Treatment: Patient evaluated in the emergency department today for right knee pain. Vitals noted and stable. Physical exam was benign and showed no evidence of significant knee instability or ligamental damage. X-ray showed no evidence of fracture or periprosthetic displacement. Patient discharged with outpatient follow-up to orthopedics. - Diagnoses Differential Diagnosis/HQI/PQRI: Positive: Arthritis, Fracture (Closed), Sprain , Strain Provider Diagnoses: Knee pain, right Discharge ED - Sign-Out/Discharge Documenting (check all that apply): Patient Departure - Discharge Plan Condition: Stable Disposition: HOME Patient Education Materials: Knee Pain (ED) Referrals: Miguelito Elizabeth MD [Medical Doctor] - 3 Days Rene Wan MD [Primary Care Provider] - Additional Instructions: You were seen in the emergency department today for knee pain. Please follow up with Orthopedics in 5 days for further evaluation and management of your injury. Until you are seen by Orthopedics please return to activity is tolerated. For further alleviation of your symptoms please practice R.I.C.E therapy. Rest, Ice, compress, elevate the affected area. * Ibuprofen 600mg three times daily with meals for pain. * If numbness, tingling, decreased sensation, increased pain, temperature changes or pallor noted in toes, come back to ER immediately. * Protect the area. For your comfort level, do not bear weight, pull or push until you can injury is somewhat healed. This may involve the need for immobilization or crutches for a period of time. * Rest the involved area, but not too long. You may need to be off your injury for some time to allow for healing, however excessive immobilization of joints can lead to stiffness and delay healing time. Early mobilization is encouraged if it is pain-free. * Ice: Not directly on the skin. Cover with a towel. Apply ice no more than 30 minutes at a time * Compression: You may use and keep an sofy wrap bandage over the injury to decrease swelling. Again, this should be limited and be taken off periodically to encourage early range of motion and mobilization. * Elevate: Try to elevate the injured area above the heart whenever possible, Especially during sleep. - Billing Disposition and Condition Condition: STABLE Disposition: Home - Attestation Statements Provider Attestation: I was available for consultation for this patient. I did not evaluate the patient or participate in any medical decision making or disposition decisions unless I am specifically named in the chart as having consulted on the patient. If I have consulted on the patient, please see my own ED note on the patient encounter. Angeline Young MD
[2019-08-03 13:28] VITALS: BP 124/79
== END 2019-08-03 13:27 | disposition home or self-care (01) ==
LOC: ED 10:24
DX: M25.561 Pain in right knee (principal); E07.89 Other specified disorders of thyroid; E78.00 Pure hypercholesterolemia, unspecified; I10 Essential (primary) hypertension; Z79.890 Hormone replacement therapy; Z79.899 Other long term (current) drug therapy; Z96.653 Presence of artificial knee joint, bilateral; Z88.8 Allergy status to other drugs, medicaments and biological substances; Z88.6 Allergy status to analgesic agent; Z91.040 Latex allergy status
CPT/HCPCS: 99282

== ENCOUNTER 2020-08-11 07:53 | Inpatient (IN) ==
[~2020-08-11 07:53] MED LIST changes: -Aspirin 81 mg CHEW TAB* 81 MG TAB.CHEW PO ONE; +Buffered Lidocaine 1% SYRIN 1 ml INTRADERM ONE; +Dexamethasone IV 4 MG/ML VIAL 1 ml VIAL IV SLOW PU ONE; -Iodixanol* (CONTRAST) 320 MG/ML 100 ML SDV IV ONE; +Lactated Ringers 1000 ml BAG 1,000 ML IV SCH; -Nitroglycerin TAB 0.4 MG* 0.4 MG TAB SL ONE
[2020-08-11] MEDS ORDERED: Heparin 5000 UNITS/ML 1 mL VIAL ONE (08:06)
[2020-08-11] MEDS ORDERED: ceFAZolin 1 GM ADVAN 1 GM ADDV.VIAL IVPB ONE (08:07)
[2020-08-11] MEDS ORDERED: Dexamethasone IV 4 MG/ML VIAL 1 ml VIAL ONE (08:07)
[2020-08-11] MEDS ORDERED: ceFAZolin 2 GM PREMIX 2 GM/50 ML BAG ONE (08:07)
[2020-08-11] MEDS ORDERED: Bupivacaine 0.25% EPI 200,000 30 ML SDV ONE ×2 (09:14→10:26)
[2020-08-11] MEDS ORDERED: Midazolam 5 mg/5 ml VIAL 1 mg/ml 5 ml VIAL (5 mg) ONE (09:31)
[2020-08-11] MEDS ORDERED: fentaNYL 250 mcg/5 ml 50 MCG/ML 5 ml VIAL (250 MCG) ONE (09:31)
[2020-08-11] MEDS ORDERED: Propofol 10 MG/ML 20 ML BTL ONE (09:32)
[2020-08-11] MEDS ORDERED: Lidocaine 2% PF 5 ML VIAL ONE (09:32)
[2020-08-11] MEDS ORDERED: Rocuronium 50 mg VIAL 10 mg/ml 5 ml VIAL (50 mg) ONE ×2 (09:32→11:00)
[2020-08-11] MEDS ORDERED: Acetaminophen IV 1 GM/100ML 1,000 MG/100 ML VIAL IVPB ONE (09:39)
[2020-08-11] MEDS ORDERED: Naloxone 0.4 mg VIAL 0.4 mg/ml 1 ml VIAL IV PRN (09:39)
[2020-08-11] MEDS ORDERED: Morphine 4 MG/ML VIAL (1 ml) IV PRN (09:39)
[2020-08-11] MEDS ORDERED: Prochlorperazine 5 mg/ml 2 ml VIAL (10 mg) IV PRN (09:39)
[2020-08-11] MEDS ORDERED: EPHEDrine (Pressors) 50 MG/ML VIAL ONE (10:26)
[2020-08-11] MEDS ORDERED: Ondansetron 4 mg VIAL 2 MG/ML 2 ml VIAL ONE ×2 (11:21→12:59)
[2020-08-11] MEDS ORDERED: Sugammadex 500 MG/5 ML 5 ml VIAL IV PUSH ONE (11:55)
[2020-08-11] MEDS ORDERED: diPHENhydraMINE IV 50 MG/ML 1 ml VIAL (BENADRYL) SLOW PUSH PRN (12:09)
[2020-08-11] MEDS ORDERED: HYDROcodone/ACET. 7.5/325 LIQ 15 ML UDC PO PRN (12:09)
[2020-08-11] MEDS ORDERED: HYDROmorphone 1 MG/1 ML SYRINGE IV SLOW PU PRN (12:09)
[2020-08-11] MEDS ORDERED: fentaNYL 100 mcg/2 ml 50 MCG/ML VIAL ONE ×3 (12:36→13:32)
[2020-08-11] MEDS: fentaNYL 100 mcg/2 ml 50 MCG/ML VIAL IV PRN ×5 (12:36→13:33)
[2020-08-11] MEDS: Ondansetron 4 mg VIAL 2 MG/ML 2 ml VIAL IV PRN (13:02)
[2020-08-11] MEDS: Lactated Ringers 1000 ml BAG 1,000 ML IV SCH ×2 (13:57→21:11)
[2020-08-11] MEDS: Heparin 5000 UNITS/ML 1 mL VIAL SUBCUT SCH ×2 (16:08→21:12)
[2020-08-11] MEDS: HYDROmorphone 0.5 MG/0.5 ML SYRINGE IV SLOW PU PRN ×2 (16:09→21:20)
[2020-08-11] MEDS: Famotidine IV 10 MG/ML 2 ml VIAL (20 mg) IV SLOW PU SCH (21:13)
[2020-08-12] MEDS: HYDROmorphone 0.5 MG/0.5 ML SYRINGE IV SLOW PU PRN (03:04)
[2020-08-12] MEDS: Ondansetron 4 mg VIAL 2 MG/ML 2 ml VIAL IV PRN ×2 (03:09→09:08)
[2020-08-12] MEDS: Lactated Ringers 1000 ml BAG 1,000 ML IV SCH (03:43)
[2020-08-12] MEDS: Heparin 5000 UNITS/ML 1 mL VIAL SUBCUT SCH ×2 (05:45→14:09)
[2020-08-12] MEDS: Famotidine IV 10 MG/ML 2 ml VIAL (20 mg) IV SLOW PU SCH (08:32)
[2020-08-12] MEDS ORDERED: D5W 1/2 NS KCl 20 meq 1000 ml 1,000 ML IV SCH (13:00)
[2020-08-12 15:38] VITALS: BP 148/71
[2020-08-14] MEDS ORDERED: Scopolamine PATCH Remove NOTE PATCH OFF SCH (09:00)
== END 2020-08-12 18:00 | disposition home or self-care (01) | DRG 621 ==
LOC: AA 07:53 → SSU 13:41
PROVIDERS: ADMIT Surgery; ATTEND Surgery

== ENCOUNTER 2023-10-05 06:07 | Observation (INO) ==
[~2023-10-05 06:07] MED LIST changes: -Buffered Lidocaine 1% SYRIN 1 ml INTRADERM ONE; -Dexamethasone IV 4 MG/ML VIAL 1 ml VIAL IV SLOW PU ONE; -Lactated Ringers 1000 ml BAG 1,000 ML IV SCH; +Naloxone 0.4 mg VIAL 0.4 mg/ml 1 ml VIAL IV PRN; +Ondansetron 4 mg VIAL 2 MG/ML 2 ml VIAL IV PRN; +fentaNYL 100 mcg/2 ml 50 MCG/ML VIAL IV PRN
[2023-10-05 06:56] LABS: Rapid COVID-19 Molecular Undetected (Undetected)
[2023-10-05] MEDS ORDERED: Tranexamic Acid 1 GM/100ML BAG 2,000 MG/200 ML BAG IV ONE (08:02)
[2023-10-05] MEDS ORDERED: Buffered Lidocaine 1% SYRIN 1 ml ONE (08:02)
[2023-10-05] MEDS ORDERED: ceFAZolin 2 GM in NS PREMIX 2 GM/100 ML BAG IVPB ONE (08:02)
[2023-10-05] MEDS: Lactated Ringers 1000 ml BAG 1,000 ML IV SCH ×2 (08:24→14:51)
[2023-10-05] MEDS ORDERED: fentaNYL 250 mcg/5 ml 50 MCG/ML 5 ml VIAL (250 MCG) ONE (08:37)
[2023-10-05] MEDS ORDERED: Ondansetron 4 mg VIAL 2 MG/ML 2 ml VIAL ONE (08:37)
[2023-10-05] MEDS ORDERED: Rocuronium 50 mg VIAL 10 mg/ml 5 ml VIAL (50 mg) ONE ×2 (08:37→14:29)
[2023-10-05] MEDS ORDERED: Dexamethasone IV 4 MG/ML VIAL 1 ml VIAL ONE (08:37)
[2023-10-05] MEDS ORDERED: Lidocaine 2% PF 5 ML VIAL ONE (08:37)
[2023-10-05] MEDS ORDERED: Midazolam 2 mg/2 ml VIAL 1 mg/ml 2 ml VIAL (2 mg) ONE (08:37)
[2023-10-05] MEDS ORDERED: Phenylephrine 40 mcg/mL 10mL (400mcg) SYRINGE ONE (10:46)
[2023-10-05] MEDS ORDERED: Ondansetron 4 mg VIAL 2 MG/ML 2 ml VIAL IV PRN (12:17)
[2023-10-05] MEDS ORDERED: Ondansetron ODT 4 mg TAB 4 MG TAB PO PRN (12:17)
[2023-10-05] MEDS ORDERED: Morphine 2 MG/ML SYRINGE IV PRN (12:17)
[2023-10-05] MEDS ORDERED: Lactulose 30 ml UDC PO PRN (12:17)
[2023-10-05] MEDS ORDERED: Magnesium Hydroxide LIQ 30 ML UDC PO PRN (12:17)
[2023-10-05] MEDS ORDERED: Calcium Carb (TUMS) 500 mg CHEW TAB PO PRN (12:17)
[2023-10-05] MEDS ORDERED: HYDROmorphone 0.5 MG/0.5 ML SYRINGE ONE (12:47)
[2023-10-05] MEDS ORDERED: Propofol 10 MG/ML 20 ML BTL ONE (12:58)
[2023-10-05] MEDS: Buffered Lidocaine 1% SYRIN 1 ml INTRADERM ONE (15:01)
[2023-10-05 16:25] VITALS: BP 135/75
[2023-10-05] MEDS: ceFAZolin 2 GM in NS PREMIX 2 GM/100 ML BAG IVPB SCH (17:36)
[2023-10-05] MEDS ORDERED: Magnesium Hydroxide LIQ 30 ML UDC PO SCH (21:00)
[2023-10-06] MEDS ORDERED: Vitamin THERAPEUTIC TAB PO SCH (09:00)
== END 2023-10-05 18:45 | disposition home or self-care (01) ==
LOC: SSU 06:07 → OR 06:07
PROVIDERS: ADMIT Orthopaedic Surgery Adult Reconstructive Orthopaedic Surgery; ATTEND Orthopaedic Surgery Adult Reconstructive Orthopaedic Surgery

== ENCOUNTER 2023-12-31 05:31 | Observation (INO) ==
[2023-12-31] MEDS ORDERED: Dexamethasone IV 4 MG/ML VIAL 1 ml VIAL ONE (06:19)
[2023-12-31] MEDS ORDERED: ceFAZolin 2 GM in NS PREMIX 2 GM/100 ML BAG IVPB ONE (06:20)
[2023-12-31] MEDS ORDERED: Famotidine IV 10 MG/ML 2 ml VIAL (20 mg) ONE (06:20)
[2023-12-31] MEDS ORDERED: Chlorhexidine MOUTHWASH 0.12% 15 ML UDC ONE (06:21)
[2023-12-31] MEDS: Famotidine IV 10 MG/ML 2 ml VIAL (20 mg) IV ONE (06:31)
[2023-12-31] MEDS: Dexamethasone IV 4 MG/ML VIAL 1 ml VIAL IV SLOW PU ONE (06:31)
[2023-12-31] MEDS: Lactated Ringers 1000 ml BAG 1,000 ML IV SCH ×2 (06:31→11:26)
[2023-12-31] MEDS: Buffered Lidocaine 1% SYRIN 1 ml INTRADERM ONE (06:32)
[2023-12-31 06:34] LABS: Rapid COVID-19 Molecular Undetected (Undetected)
[2023-12-31] MEDS ORDERED: Lidocaine 1% w EPI 1:100,000 MDV 20 ML VIAL ONE (06:37)
[2023-12-31] MEDS ORDERED: ceFAZolin VIAL VIAL ONE (06:38)
[2023-12-31] MEDS ORDERED: Thrombin 5,000 UNITS 1 APPLIC KIT - topical use - TOPICAL ONE (06:38)
[2023-12-31] MEDS ORDERED: Midazolam 2 mg/2 ml VIAL 1 mg/ml 2 ml VIAL (2 mg) ONE (06:58)
[2023-12-31] MEDS ORDERED: fentaNYL 100 mcg/2 ml 50 MCG/ML VIAL ONE ×2 (06:58→10:05)
[2023-12-31] MEDS ORDERED: Lidocaine 2% PF 5 ML VIAL ONE (06:59)
[2023-12-31] MEDS ORDERED: Rocuronium 50 mg VIAL 10 mg/ml 5 ml VIAL (50 mg) ONE (06:59)
[2023-12-31] MEDS ORDERED: Propofol 10 MG/ML 20 ML BTL ONE (06:59)
[2023-12-31] MEDS ORDERED: Naloxone 0.4 mg VIAL 0.4 mg/ml 1 ml VIAL IV PRN (08:06)
[2023-12-31] MEDS ORDERED: Phenylephrine 40 mcg/mL 10mL (400mcg) SYRINGE ONE (08:20)
[2023-12-31] MEDS ORDERED: Ondansetron 4 mg VIAL 2 MG/ML 2 ml VIAL ONE (08:57)
[2023-12-31] MEDS ORDERED: Calcium Carb (TUMS) 500 mg CHEW TAB PO PRN (09:49)
[2023-12-31] MEDS ORDERED: Benzocaine/Menthol LOZ MT PRN (09:49)
[2023-12-31] MEDS ORDERED: Phenol 1.4% Throat Spray BTL MT PRN (09:49)
[2023-12-31] MEDS ORDERED: Morphine 2 MG/ML SYRINGE IV PRN (09:49)
[2023-12-31] MEDS ORDERED: Dextran 70/Hypromellose Tears Eye Drops 15 ml BTL (for Artificials Tears) BOTH EYES PRN (09:49)
[2023-12-31] MEDS ORDERED: Ondansetron 4 mg VIAL 2 MG/ML 2 ml VIAL IV PRN (09:49)
[2023-12-31] MEDS: fentaNYL 100 mcg/2 ml 50 MCG/ML VIAL IV PRN (10:09)
[2024-01-01] MEDS: Senna TAB 8.6 mg TAB PO PRN (08:54)
[2024-01-02 10:25] VITALS: BP 124/78
== END 2024-01-02 10:52 | disposition home or self-care (01) ==
LOC: OR 05:31 → SSU 05:31
PROVIDERS: ADMIT Neurological Surgery; ATTEND Neurological Surgery